=== PATIENT | male | born 1980 | race Caucasian/White ===

== ENCOUNTER 2020-06-28 20:51 | Emergency (ER) | payer OTHER ==
[~2020-06-28] VITALS: Ht 165.1 cm; Wt 80.7 kg
[2020-06-28 21:33] LABS: URINE BILIRUBIN NEGATIVE (Negative); URINE BLOOD NEGATIVE (Negative); URINE CLARITY CLEAR; URINE COLOR YELLOW; URINE GLUCOSE-RANDOM* NEGATIVE (Negative); URINE KETONES NEGATIVE (Negative); URINE LEUKOCYTES-REFLEX NEGATIVE (Negative); URINE NITRITE-REFLEX NEGATIVE (Negative); URINE PROTEIN (DIPSTICK) NEGATIVE (Negative); URINE UROBILINOGEN 0.2 E.U./dl (0.2-1.0)
[2020-06-28 21:43] LABS: AMP/METHAMP Negative (Negative); BARBITURATES Negative (Negative); BENZODIAZEPINES POSITIVE (Negative); COCAINE Negative (Negative); METHADONE Negative (Negative); OPIATES Negative (Negative); PCP Negative (Negative)
[2020-06-28 22:15] LABS: HEMOGLOBIN 14.8 gm/dL (14.0-18.0); MCH 29.3 pg (26.0-34.0); MCHC 32.8 g/dL (28.0-37.0); MCV 89.3 fL (80.0-100.0); RBC 5.04 mil/uL (4.50-6.00); RDW 14.3 % (10.5-14.5); WBC 13.6 thou/uL (4.0-11.0)
[2020-06-28 22:26] LABS: CREATININE 0.7 mg/dL (0.7-1.3); POTASSIUM 4.2 mmol/L (3.5-5.1)
[2020-06-28 22:36] VITALS: BP 133/94
== END 2020-06-28 22:43 | disposition home or self-care (01) ==
LOC: ER 20:51
PROVIDERS: Nurse Practitioner
DX: S01.01XA Laceration without foreign body of scalp, initial encounter (principal); F10.10 Alcohol abuse, uncomplicated; Z88.5 Allergy status to narcotic agent; W19.XXXA Unspecified fall, initial encounter; Y93.89 Activity, other specified; Y92.89 Other specified places as the place of occurrence of the external cause; Y99.8 Other external cause status; Y90.9 Presence of alcohol in blood, level not specified